=== PATIENT | male | born 1935 | race Hispanic/Latino ===

== ENCOUNTER → 2017-08-27 | Outpatient (CLI) | payer OTHER, MEDICARE ==
[~2017-08-27] MED LIST: AMLODIPINE BESYL5 MG PO; ASPIRIN81 MG PO; BELLADONNA-PH16.2 MG; CLOPIDOGREL75 MG PO; CRESTOR5 MG PO; DIAZEPAM5 MG PO; DOCUSATE SODIU100 MG PO; DOXYCYCLINE HY100 M3; FIBER PO; FISH OIL 1,0001 EAC2 PO; FLOMAX0.4 MG PO; GABAPENTIN300 MG PO; GLIPIZIDE ER2.5 MG; LISINOPRIL10 MG PO; METOPROLOL SUCC25 MG PO; NEXIUM40 MG PO; OXAPROZIN600 MG PO; SERTRALINE HCL50 MG PO
--- NOTE | 2017-08-27 10:50 | Diagnostic Imaging Report ---
History: Frontal headache. Chronic sinusitis Comparison studies: None Technique: Axial images were obtained through the paranasal sinuses. Coronal and sagittal images reconstructed from the axial data. Intravenous contrast: None Findings: Paranasal sinuses: Minimal mucosal thickening at the maxillary sinuses alveolar recesses Clear bilaterally including the ostiomeatal units, frontonasal and sphenoethmoidal recesses. Other: Nasal vestibule and cavity: Patent nasal vestibule. Mildly narrowed nasal cavity Nasal septum: 4 mm right septal deviation at the level of the perpendicular plate of the vomer Agger Nasi: Clear bilaterally. Turbinates: Non-aerated bilaterally. Mucosal thickening at the bilateral turbinates. Bobby cells: None Lamina papyracea: Intact. Cribriform plate: Symmetric, 5 mm below the level of the fovea ethmoidalis. Olfactory recesses: Clear Optic nerves: Not dehiscent [place] cells: None Sphenoid sinuses: Clear. The lateral recesses are aerated. Sphenoid septum: Towards the right. Internal carotid arteries: Do not bulge into the sphenoid sinuses. from the sphenoid sinuses by 1 mm bone septum. Atherosclerotic changes of the carotid siphons Orbits: No abnormalities. Bones: No abnormalities. Temporal bones: No abnormalities. Multiple missing dentition. IMPRESSION: 1. Minimal nonspecific mucosal thickening at the maxillary recesses. No other significant inflammatory changes of the paranasal sinuses. 2. Mild nasal cavity narrowing secondary to mucosal thickening of the turbinates and mild right septal deviation. Signed by: DR Jc Mariano M.D. on 08/27/2017 10:46 AM
== END ==
LOC: CT 08:46
PROVIDERS: ATTEND Internal Medicine Allergy & Immunology
DX: J32.9 Chronic sinusitis, unspecified (principal)
CPT/HCPCS: 70486

== ENCOUNTER → 2017-10-09 | Outpatient (CLI) | payer MEDICARE, OTHER ==
[2017-10-09 10:18] LABS: BASOPHILS % 0.6 % (0.0-1.0); EOSINOPHILS # (AUTO) 0.4 (0.0-0.4); EOSINOPHILS % 5.9 % (0.0-6.0); HEMATOCRIT 40.2 % (38.2-49.6); LYMPHOCYTES # (AUTO) 1.1 (1.0-3.2); LYMPHOCYTES % 15.3 % (18.0-39.1); MEAN CORPUSCULAR HEMOGLOBIN 32.8 pg (28-32); MEAN CORPUSCULAR HGB CONC 34.8 g/dL (31-35); MEAN CORPUSCULAR VOLUME 94.1 fL (81-99); MONOCYTES # (AUTO) 0.8 (0.2-0.8); MONOCYTES % 11.9 % (4.4-11.3); NEUTROPHILS # (AUTO) 4.6 (2.1-6.9); NEUTROPHILS % 65.9 % (38.7-80.0); PLATELET COUNT 195 x10e3/uL (140-360); RED BLOOD COUNT 4.27 x10e6/uL (4.3-5.7); RED CELL DISTRIBUTION WIDTH 13.5 % (11.7-14.4)
[2017-10-09 11:13] LABS: ERYTHROCYTE SEDIMENTATION RATE 9 mm/hr (0-13)
--- NOTE | 2017-10-10 08:26 | Diagnostic Imaging Report ---
EXAMINATION: MRI of the brain without contrast. HISTORY: Left-sided head pain for several months COMPARISON: None. TECHNIQUE: Sagittal T2; axial DWI, T2, FLAIR, T1-IR, T2 gradient echo; coronal FLAIR. IMAGE QUALITY: Adequate. FINDINGS: Parenchyma: 1. Few scattered white matter FLAIR hyperintense foci, most likely age appropriate nonspecific minimal chronic microvascular ischemic changes. 2. No mass, hemorrhage, acute or chronic infarcts. Skull: Unremarkable. Vessels: Expected flow voids present in the major arteries and dural sinuses. Extra-axial spaces: No abnormal signal intensity or mass effect. Brain volume: Within normal limits for age. Ventricles: No hydrocephalus or displacement. Foramen magnum: Unremarkable. Sella: Unremarkable. Paranasal / mastoid sinuses: No significant inflammatory disease. IMPRESSION: Minimal age appropriate white matter chronic microvascular ischemic changes. Otherwise no intracranial abnormalities. Signed by: Dr. Jeane Spears M.D. on 10/10/2017 8:22 AM
== END ==
LOC: MRI 08:44
PROVIDERS: ATTEND Student in an Organized Health Care Education/Training Program
DX: R51 Headache (principal)
CPT/HCPCS: 36415; 70551; 85025; 85651; 86140

== ENCOUNTER → 2018-04-16 | Outpatient (CLI) | payer OTHER, MEDICARE ==
[~2018-04-16] MED LIST changes: +IOPAMIDOL 370 MG/ML 200 ML INFUS..BTL INJ ONE; +SODIUM CHLORIDE 0.9% 50ML 50 ML ONE
[2018-04-16 12:45] LABS: BLOOD UREA NITROGEN 12 mg/dL (7-26); BUN/CREATININE RATIO 13 (6-25); CREATININE, SERUM 0.91 mg/dL (0.72-1.25); EST GLOMERULAR FILTRATION RATE > 60 ML/MIN (60-)
--- NOTE | 2018-04-16 15:07 | Diagnostic Imaging Report ---
EXAMINATION: CT of the abdomen and pelvis with contrast. TECHNIQUE: Spiral CT images of the abdomen and pelvis were performed from the lung bases to the lesser trochanters after the intravenous administration of 100 cc of Isovue 300 and the oral administration of water. Coronal and sagittal reformatted images were obtained. COMPARISON: None. CLINICAL HISTORY:Abdominal pain DISCUSSION: ABDOMEN/PELVIS: LOWER THORAX:Unremarkable. HEPATOBILIARY: No focal hepatic lesions. No intra hepatic biliary ductal dilation. Mild dilation of the common bile duct, which measures 1.0 cm in caliber. No radiopaque intraluminal filling defects.. GALLBLADDER: Cholecystectomy clips. SPLEEN: No splenomegaly. PANCREAS: No focal masses or ductal dilatation. ADRENALS: No adrenal nodules. KIDNEYS/URETERS: No hydronephrosis, stones, or solid mass lesions. Marked cortical scarring in the mid and inferior aspect of the right kidney PELVIC ORGANS/BLADDER: Mild circumferential bladder wall thickening. No focal lesions. Mild prostatic enlargement. PERITONEUM/RETROPERITONEUM: No free air or fluid. LYMPH NODES: No intra-abdominal, retroperitoneal, pelvic or inguinal lymphadenopathy. VESSELS: Atherosclerotic calcification of the abdominal aorta and iliac vessels. GI TRACT: No bowel dilation or evidence of obstruction. Scattered diverticula in the sigmoid colon, without diverticulitis. No pericolonic inflammatory changes. Stomach is unremarkable. BONES AND SOFT TISSUE: No aggressive lytic lesions. No soft tissue abnormalities. IMPRESSION: 1. No acute abdominopelvic abnormalities. 2. Mild dilation of the common bile duct, likely reflecting postcholecystectomy status. 3. Mild circumferential bladder wall thickening, which may reflect bladder outlet obstruction from a mildly enlarged prostate. Correlate for cystitis. Signed by: Dr. Demond Pollock M.D. on 04/16/2018 3:04 PM
== END ==
LOC: CT 11:42
PROVIDERS: ATTEND Family Medicine
DX: R10.9 Unspecified abdominal pain (principal)
CPT/HCPCS: 36415; 74177; 82565; 84520; Q9967

== ENCOUNTER 2018-04-18 12:03 | Emergency (ER) | payer MEDICARE, OTHER ==
[~2018-04-18] VITALS: Ht 170.2 cm; Wt 72.6 kg
[~2018-04-18 12:03] MED LIST changes: -IOPAMIDOL 370 MG/ML 200 ML INFUS..BTL INJ ONE; -SODIUM CHLORIDE 0.9% 50ML 50 ML ONE
[2018-04-18 13:11] LABS: BASOPHILS % 0.4 % (0.0-1.0); EOSINOPHILS # (AUTO) 0.2 (0.0-0.4); EOSINOPHILS % 2.8 % (0.0-6.0); HEMATOCRIT 39.4 % (38.2-49.6); HEMOGLOBIN 13.8 g/dL (14.0-18.0); LYMPHOCYTES # (AUTO) 1.5 (1.0-3.2); LYMPHOCYTES % 19.7 % (18.0-39.1); MEAN CORPUSCULAR HEMOGLOBIN 32.5 pg (28-32); MEAN CORPUSCULAR VOLUME 92.9 fL (81-99); MONOCYTES # (AUTO) 1.1 (0.2-0.8); NEUTROPHILS # (AUTO) 4.7 (2.1-6.9); NEUTROPHILS % 62.8 % (38.7-80.0); PLATELET COUNT 215 x10e3/uL (140-360); RED BLOOD COUNT 4.24 x10e6/uL (4.3-5.7)
[2018-04-18 13:22] LABS: ALANINE AMINOTRANSFERASE 41 IU/L (0-55); ALBUMIN 3.9 g/dL (3.5-5.0); ALBUMIN/GLOBULIN RATIO 1.3 (0.8-2.0); ALKALINE PHOSPHATASE 108 IU/L (40-150); AMYLASE 101 U/L (25-125); ANION GAP 15.1 mmol/L (8-16); BLOOD UREA NITROGEN 19 mg/dL (7-26); BUN/CREATININE RATIO 20 (6-25); CALCIUM 8.8 mg/dL (8.4-10.2); CARBON DIOXIDE 21 mmol/L (22-29); CHLORIDE 97 mmol/L (98-107); CREATINE KINASE 163 IU/L (30-200); CREATININE, SERUM 0.93 mg/dL (0.72-1.25); EST GLOMERULAR FILTRATION RATE > 60 ML/MIN (60-); GLUCOSE 150 mg/dL (74-118); LIPASE 62 U/L (8-78); POTASSIUM 4.1 mmol/L (3.5-5.1); SODIUM 129 mmol/L (136-145)
[2018-04-18] MEDS ORDERED: ONDANSETRON HCL INJ 2 MG/ML VIAL IV STA (14:13)
[2018-04-18] MEDS ORDERED: MORPHINE SULFATE INJ 4 MG/ML INJ IV ONE (14:15)
[2018-04-18 14:43] LABS: BILIRUBIN,URINE NEGATIVE (NEGATIVE); CLARITY,URINE CLEAR (CLEAR); COLOR,URINE YELLOW (YELLOW); KETONES,URINE NEGATIVE (NEGATIVE); LEUKOCYTE ESTERASE ,URINE NEGATIVE (NEGATIVE); NITRITE,URINE NEGATIVE (NEGATIVE); PROTEIN,URINE DIPSTICK NEGATIVE (NEGATIVE); URINE UROBILINOGEN 0.2 mg/dL (0.2 - 1)
[2018-04-18 14:44] LABS: RBC,URINE 0-5 /HPF (0-5); WBC,URINE (MAN) 0-5 /HPF (0-5)
[2018-04-18 14:45] LABS: BACTERIA,URINE RARE /HPF
--- NOTE | 2018-04-18 15:21 | Diagnostic Imaging Report ---
EXAMINATION: CHEST 2 VIEWS INDICATION: \S\epigastric pain \[id number] \S\[id number] COMPARISON: Chest radiograph 05/13/2014 (report only) FINDINGS: PA and lateral views TUBES and LINES: None. LUNGS: Lungs are well inflated. Lungs are clear. There is no evidence of pneumonia or pulmonary edema. PLEURA: No pleural effusion or pneumothorax. Biapical pleural thickening. HEART AND MEDIASTINUM: The cardiomediastinal silhouette is unremarkable. BONES AND SOFT TISSUES: No acute osseous lesion. Soft tissues are unremarkable. UPPER ABDOMEN: No free air under the diaphragm. Right upper quadrant cholecystectomy clips. IMPRESSION: Biapical pleural thickening. Recommend follow-up chest radiograph in 3 months to demonstrate stability. Otherwise, unremarkable chest radiograph. Signed by: Dr. Yadira Clark M.D. on 04/18/2018 3:18 PM
[2018-04-18 18:05] VITALS: BP 121/80
== END 2018-04-18 18:09 | disposition home or self-care (01) ==
LOC: ER 12:03
DX: R10.13 Epigastric pain (principal); I10 Essential (primary) hypertension; E11.9 Type 2 diabetes mellitus without complications; E78.5 Hyperlipidemia, unspecified; K21.9 Gastro-esophageal reflux disease without esophagitis
CPT/HCPCS: 36415; 71046; 80053; 81001; 82150; 82550; 82553; 82948; 83690; 84484; 85025; 93005; 99284; J2270; J2405

== ENCOUNTER → 2018-09-01 | Outpatient (CLI) | payer MEDICARE, OTHER ==
--- NOTE | 2018-09-01 16:01 | Diagnostic Imaging Report ---
Exam: Thoracic spine 2 views History: Back pain Comparison: None. Findings: No fracture or malalignment. Disc spaces preserved. No abnormal soft tissue calcification or soft tissue defect. Impression: No acute osseous abnormality Signed by: Dr. Shan Aguirre M.D. on 09/01/2018 3:57 PM
== END ==
LOC: RAD 14:48
PROVIDERS: ATTEND Family Medicine
DX: M54.6 Pain in thoracic spine (principal)
CPT/HCPCS: 72070

== ENCOUNTER → 2019-01-25 | Outpatient (CLI) | payer MEDICARE, OTHER ==
--- NOTE | 2019-01-25 13:22 | Diagnostic Imaging Report ---
EXAM: Renal Ultrasound INDICATION: Renal sclerosis. COMPARISON: CT abdomen/pelvis 04/16/2018. TECHNIQUE: Transverse and longitudinal images of the kidneys and bladder were obtained. FINDINGS: Right Kidney: Length: Measures 9.6 x 5.3 x 4.8 cm Appearance: Normal echogenicity. Collecting system: No hydronephrosis Stones: None Cyst/Mass: None Left Kidney: Length: Measures 10.4 x 5.4 x 4.1 cm Appearance: Normal echogenicity. Collecting system: No hydronephrosis Stones: None Cyst/Mass: No evidence of solid mass. There is a simple appearing anechoic cyst within the midpole, measuring up to 2.0 cm. Bladder: Unremarkable in appearance. Bilateral ureteral jets are present. IMPRESSION: Simple appearing left midpole renal cyst. Otherwise unremarkable renal ultrasound. Signed by: Dr. Kelsi Bernstein MD on 01/25/2019 1:19 PM
== END ==
LOC: US 11:36
PROVIDERS: ATTEND Urology
DX: N26.9 Renal sclerosis, unspecified (principal)
CPT/HCPCS: 76770

== ENCOUNTER 2019-03-10 08:39 | Observation (INO) | payer MEDICARE ==
[~2019-03-10] VITALS: Ht 167.6 cm; Wt 72.1 kg
--- OUTSIDE RECORDS SUMMARY | 2019-03-10 08:41 | XMS REPORT | Continuity of Care Document ---
Author Author [facility] Organization [employer] Address Unknown Phone Unavailable Care Team Providers Care Teacher Learning Disabled Name Role Phone [employer] Unavailable Unavailable Problems Problem Status Onset Date Classification Date Reported Comments Source CAD, REDUCED EF Active 08/08/2016 [facility] W/ POSS/DX: CAD, REDUCED EF Active 08/08/2016 [facility] Discharge Diagnosis: Acute headache 04/16/2016 04/19/2016 [facility] DIZINESS/ARM PAIN Active 04/16/2016 [facility] CAD, REDUCED EF 40-45% . Active 04/12/2016 [facility] W/ POSS/DX: CAD, REDUCED EF 40-4 Active 04/12/2016 [facility] 719.45 - JOINT PAIN-PELV Active 04/12/2015 [facility] [place] BACK PAIN, LUMBAR Active 11/10/2013 Condition 11/10/2013 [facility] Low back pain8 Active 11/10/2013 Problem 09/05/2016 Data migrated from [employer] on 01/17/15. [facility] OPIJean Paul [place] CORONARY ATHEROSCLEROSIS, VENETIE IRA VESSEL Active 10/22/2013 Condition 11/10/2013 [facility] INGUINAL PAIN, LEFT Active 10/22/2013 Condition 11/10/2013 [facility] BODY MASS INDEX BETWEEN 19-24 ADULT Active 10/22/2013 Condition 11/10/2013 [facility] Coronary atherosclerosis4 Active 10/22/2013 Problem 09/05/2016 Data migrated from [employer] on 01/17/15. [facility] [place] Inguinal pain7 Active 10/22/2013 Problem 09/05/2016 Data migrated from [employer] on 01/17/15. [facility] [place] DIABETES MELLITUS, TYPE II Active Condition 11/10/2013 [facility] HYPERTENSION, BENIGN Active Condition 11/10/2013 [facility] HYPERLIPIDEMIA Active Condition 11/10/2013 [facility] GERD Active Condition 11/10/2013 [facility] BENIGN PROSTATIC HYPERTROPHY, WITH OBSTRUCTION Active Condition 11/10/2013 [facility] ANXIETY Active Condition 11/10/2013 [facility] Anxiety disorder1 Active Problem 09/05/2016 Data migrated from [employer] on 01/17/15. [facility] Coronary artery disease Resolved Problem 09/05/2016 [facility] Benign hypertension2 Active Problem 09/05/2016 Data migrated from [employer] on 01/17/15. [facility] [place] Benign prostatic hypertrophy with outflow obstruction3 Active Problem 09/05/2016 Data migrated from [employer] on 01/17/15. [facility] [place] Diabetes Active Problem 09/05/2016 [facility] Gastroesophageal reflux disease5 Active Problem 09/05/2016 Data migrated from [employer] on 01/17/15. [facility] LAYLA Alonzoadena Hyperlipidemia6 Active Problem 09/05/2016 Data migrated from [employer] on 01/17/15. [facility] OPIJean Paul [place] HTN (Confirmed) Active Problem 09/05/2016 [facility] Type 2 diabetes mellitus9 Active Problem 09/05/2016 Data migrated from [employer] on 01/17/15. [facility] LAYLA Alonzoadena Medications Medication Details Route Status Patient Instructions Ordering Provider Order Date Source metoprolol 25 mg oral tablet, extended release 25 mg=1 tab, PO, Daily, # 30 tab, 0 Refill(s) Active 09/02/2016 [facility] Rosuvastatin calcium 5 MG Oral Tablet [Crestor] 5 mg=1 tab, PO, Bedtime, # 30 tab, 0 Refill(s) Active 09/02/2016 [facility] clopidogrel 75 mg oral tablet 75 mg=1 tab, PO, Daily, # 30 tab, 0 Refill(s) Active 09/02/2016 [facility] GlipiZIDE XL 2.5 mg oral tablet, extended release 2.5 mg=1 tab, PO, Daily, # 30 tab, 0 Refill(s) Active 09/02/2016 [facility] tamsulosin 0.4 mg oral capsule 0.4 mg=1 cap, PO, Daily, # 30 cap, 0 Refill(s) Active 09/02/2016 [facility] amLODIPine 5 mg oral tablet 5 mg=1 tab, PO, Daily, # 90 tab, 0 Refill(s) Active 09/02/2016 [facility] cetirizine 10 mg oral tablet 10 mg=1 tab, PO, Daily, PRN Allergic reaction, # 10 tab, 0 Refill(s) Active 09/02/2016 [facility] lisinopril 40 mg oral tablet 40 mg=1 tab, PO, Daily, # 30 tab, 0 Refill(s) Active 09/02/2016 [facility] Esomeprazole 40 MG Enteric Coated Capsule [Nexium] 40 mg=1 cap, PO, Daily, # 30 cap, 0 Refill(s) Active 09/02/2016 [facility] aspirin 81 mg tablet, enteric coated 81 mg=1 tab, PO, Daily, # 90 tab, 3 Refill(s) Active 09/02/2016 [facility] oxaprozin 600 mg oral tablet 600 mg=1 tab, PO, BID, 0 Refill(s) Inactive 09/02/2016 [facility] sodium chloride 0.9% 1000 ml INJ 1,000 mL 1,000 mL, Rate: 100 ml/hr, Infuse over: 10 hr, Route: IV, Dosing Weight 72.727 kg, Total Volume: 1,000, Start date: 09/02/16 12:29:00 [facility] [employer], Duration: 30 day, Stop date: 10/02/16 12:28:00 [facility] [employer] Inactive 09/02/2016 [facility] Saline Flush 0.9% 10 mL, Route: IVP, Drug Form: INJ, Dosing Weight 72.727, kg, PRN, PRN Line Flush, Start date: 04/16/16 21:11:00 CDT, Duration: 30 day, Stop date: 05/16/16 21:10:00 CDTNotes: Same as: BD Posiflush Sterile Inactive 04/17/2016 [facility] Tylenol 650 mg, Route: PO, Drug form: TAB, ONCE, Dosing Weight 72.727, kg, Priority: STAT, Start date: 04/16/16 21:09:00 CDT, Stop date: 04/16/16 21:09:00 CDT Inactive 04/17/2016 [facility] ASPIRIN EC LO-DOSE 81 MG TBEC take one tablet daily Active 10/22/2013 [facility] CLOPIDOGREL BISULFATE 75 MG TABS 1 tablet daily Active 10/22/2013 [facility] CRESTOR 5 MG TABS 1 tablet daily Active 10/22/2013 [facility] DIAZEPAM 5 MG TABS 1 tablet as needed Active 10/22/2013 [facility] GLIPIZIDE ER 2.5 MG [id number] take one tablet daily as directed Active 10/22/2013 [facility] LISINOPRIL 40 MG TABS 1 tablet daily Active 10/22/2013 [facility] METOPROLOL SUCCINATE ER 25 MG [id number] 1 tablet teice daily Active 10/22/2013 [facility] NEXIUM 40 MG PACK take one capsule daily Active 10/22/2013 [facility] TAMSULOSIN HCL 0.4 MG CAPS Take one capsule by mouth daily Active 10/22/2013 [facility] Allergies, Adverse Reactions, Alerts Substance Category Reaction Severity Reaction type Status Date Reported Comments Source PENICILLIN Drug allergy PENICILLIN [facility] QC NIGHTTIME COUGH Drug allergy QC NIGHTTIME [facility]GH [facility] acetaminophen-diphenhydrAMINE<sup>1</sup> Assertion Drug allergy Active Data migrated from [employer] on 12/15/14. Originally documented as QC NIGHTTIME COUGH. hives [facility] Motrin Assertion Drug allergy Active [facility] penicillins<sup>2</sup> Assertion Drug allergy Active Data migrated from [employer] on 03/16/15. Originally documented as PENICILLIN. [facility] Benadryl Assertion Drug allergy Active [facility] penicillins<sup>1</sup> Assertion Drug allergy Active Data migrated from [employer] on 03/16/15. Originally documented as PENICILLIN. [facility] Immunizations Immunization Date Given Site Status Last Updated Comments Source influenza immunization (Flu Vax) has been administered 05/27/2013 completed [facility] pneumococcal immunization administered 01/30/2005 completed [facility] Results Order Name Results Value Reference Range Date Interpretation Comments Source BLOOD BANK RESULTS ABO/Rh O POS 09/02/2016 [facility] BLOOD BANK RESULTS Antibody Scrn Negative (09/02/16 12:35 PM) 09/02/2016 [facility] CHEM PANEL Magnesium Lvl 1.9 1.8 - 2.4 09/02/2016 [facility] ELECTROLYTES AGAP 12.1 10.0 - 20.0 09/02/2016 [facility] ELECTROLYTES eGFR 73 09/02/2016 Result Comment: The eGFR is calculated using the CKD-EPI formula. In most young, healthy individuals the eGFR will be >90 mL/min/1.73m2. The eGFR declines with age. An eGFR of 60-89 may be normal in some populations, particularly the elderly, for whom the CKD-EPI formula has not been extensively validated. Use of the eGFR is not recommended in the following populations:

Individuals with unstable creatinine concentrations, including patients and those with serious co-morbid conditions.

Patients with extremes in muscle mass or diet.

The data above are obtained from the National Kidney Disease Education Program (NKDEP) which additionally recommends that when the eGFR is used in patients with extremes of body mass index for purposes of drug dosing, the eGFR should be multiplied by the estimated BMI. [facility] ELECTROLYTES Potassium Lvl 4.1 3.5 - 5.1 09/02/2016 [facility] ELECTROLYTES Chloride Lvl 93 95 - 109 09/02/2016 [facility] ELECTROLYTES Sodium Lvl 128 135 - 145 09/02/2016 [facility] ELECTROLYTES CO2 27 24 - 32 09/02/2016 [facility] ELECTROLYTES Calcium Lvl 8.9 8.5 - 10.5 09/02/2016 [facility] ELECTROLYTES Glucose Lvl 112 70 - 99 09/02/2016 [facility] ELECTROLYTES Creatinine Lvl 0.97 0.50 - 1.40 09/02/2016 [facility] ELECTROLYTES BUN 16 7 - 22 09/02/2016 [facility] HEMATOLOGY INR 1.13 0.85 - 1.17 09/02/2016 [facility] HEMATOLOGY PTT 33.7 22.9 - 35.8 09/02/2016 [facility] HEMATOLOGY PT 14.7 12.0 - 14.7 09/02/2016 [facility] HEMATOLOGY RDW 15.1 11.5 - 14.5 09/02/2016 [facility] HEMATOLOGY MPV 7.3 7.4 - 10.4 09/02/2016 [facility] HEMATOLOGY Platelet 169 133 - 450 09/02/2016 [facility] HEMATOLOGY Hgb 14.3 14.0 - 18.0 09/02/2016 [facility] HEMATOLOGY RBC 4.49 4.70 - 6.10 09/02/2016 [facility] HEMATOLOGY WBC 3.5 3.7 - 10.4 09/02/2016 [facility] HEMATOLOGY MCHC 33.9 32.0 - 36.0 09/02/2016 [facility] HEMATOLOGY MCV 94.1 80.0 - 94.0 09/02/2016 [facility] HEMATOLOGY MCH 31.8 27.0 - 31.0 09/02/2016 [facility] HEMATOLOGY Hct 42.2 42.0 - 54.0 09/02/2016 [facility] HEMATOLOGY Basophils 0.9 0.0 - 1.0 09/02/2016 [facility] HEMATOLOGY Eosinophils 0.8 0.0 - 4.0 09/02/2016 [facility] HEMATOLOGY Monocytes 15.0 2.0 - 12.0 09/02/2016 [facility] HEMATOLOGY Lymphocytes 15.3 20.0 - 40.0 09/02/2016 [facility] HEMATOLOGY Segs 68.0 45.0 - 75.0 09/02/2016 [facility] HEMATOLOGY Segs-Bands # 2.3 1.5 - 8.1 09/02/2016 [facility] HEMATOLOGY Lymphocytes # 0.5 1.0 - 5.5 09/02/2016 [facility] HEMATOLOGY Monocytes # 0.5 0.0 - 0.8 09/02/2016 [facility] HEMATOLOGY Sed Rate 9 0 - 15 04/17/2016 [facility] IMMUNOLOGY C-REACTIVE PROTEIN <2.9 (04/16/16 9:57 PM) <=2.9 04/17/2016 [facility] CARDIAC ENZYMES CK MB Index 2.0 0.0 - 2.5 04/17/2016 [facility] CARDIAC ENZYMES Total CK 97 12 - 191 04/17/2016 [facility] CARDIAC ENZYMES Troponin-I <0.02 0.00 - 0.40 04/17/2016 [facility] CARDIAC ENZYMES CK MB 1.9 0.5 - 3.6 04/17/2016 [facility] CHEM PANEL Creatinine Lvl 0.92 0.50 - 1.40 04/17/2016 [facility] CHEM PANEL BUN 18 7 - 22 04/17/2016 [facility] CHEM PANEL Glucose Lvl 135 70 - 99 04/17/2016 [facility] CHEM PANEL Sodium Lvl 131 135 - 145 04/17/2016 [facility] CHEM PANEL eGFR 79 04/17/2016 Result Comment: The eGFR is calculated using the CKD-EPI formula. In most young, healthy individuals the eGFR will be >90 mL/min/1.73m2. The eGFR declines with age. An eGFR of 60-89 may be normal in some populations, particularly the elderly, for whom the CKD-EPI formula has not been extensively validated. Use of the eGFR is not recommended in the following populations:

Individuals with unstable creatinine concentrations, including patients and those with serious co-morbid conditions.

Patients with extremes in muscle mass or diet.

The data above are obtained from the National Kidney Disease Education Program (NKDEP) which additionally recommends that when the eGFR is used in patients with extremes of body mass index for purposes of drug dosing, the eGFR should be multiplied by the estimated BMI. [facility] CHEM PANEL Chloride Lvl 97 95 - 109 04/17/2016 [facility] CHEM PANEL Potassium Lvl 4.5 3.5 - 5.1 04/17/2016 [facility] CHEM PANEL CO2 24 24 - 32 04/17/2016 [facility] CHEM PANEL AGAP 14.5 10.0 - 20.0 04/17/2016 [facility] CHEM PANEL Calcium Lvl 8.6 8.5 - 10.5 04/17/2016 [facility] CHEM PANEL B/C Ratio 20 6 - 25 04/17/2016 [facility] CHEM PANEL AST 30 0 - 37 04/17/2016 [facility] CHEM PANEL Alk Phos 189 39 - 136 04/17/2016 [facility] CHEM PANEL Bili Total 0.3 0.2 - 1.3 04/17/2016 [facility] CHEM PANEL Globulin 3.4 2.7 - 4.2 04/17/2016 [facility] CHEM PANEL A/G Ratio 1.1 0.7 - 1.6 04/17/2016 [facility] CHEM PANEL Total Protein 7.1 6.4 - 8.4 04/17/2016 [facility] CHEM PANEL ALT 43 0 - 65 04/17/2016 [facility] CHEM PANEL Albumin Lvl 3.7 3.5 - 5.0 04/17/2016 [facility] HEMATOLOGY RDW 13.5 11.5 - 14.5 04/17/2016 [facility] HEMATOLOGY Hct 38.7 42.0 - 54.0 04/17/2016 [facility] HEMATOLOGY MCV 95.7 80.0 - 94.0 04/17/2016 [facility] HEMATOLOGY Platelet 212 133 - 450 04/17/2016 [facility] HEMATOLOGY MCH 32.8 27.0 - 31.0 04/17/2016 [facility] HEMATOLOGY MCHC 34.3 32.0 - 36.0 04/17/2016 [facility] HEMATOLOGY MPV 7.3 7.4 - 10.4 04/17/2016 [facility] HEMATOLOGY RBC 4.04 4.70 - 6.10 04/17/2016 [facility] HEMATOLOGY Hgb 13.2 14.0 - 18.0 04/17/2016 [facility] HEMATOLOGY WBC 6.5 3.7 - 10.4 04/17/2016 [facility] HEMATOLOGY Monocytes 14.0 2.0 - 12.0 04/17/2016 [facility] HEMATOLOGY Segs 64.8 45.0 - 75.0 04/17/2016 [facility] HEMATOLOGY Lymphocytes 17.9 20.0 - 40.0 04/17/2016 [facility] HEMATOLOGY Monocytes # 0.9 0.0 - 0.8 04/17/2016 [facility] HEMATOLOGY Eosinophils 2.8 0.0 - 4.0 04/17/2016 [facility] HEMATOLOGY Basophils 0.5 0.0 - 1.0 04/17/2016 [facility] HEMATOLOGY Segs-Bands # 4.2 1.5 - 8.1 04/17/2016 [facility] HEMATOLOGY Lymphocytes # 1.2 1.0 - 5.5 04/17/2016 [facility] HEMATOLOGY Eosinophils # 0.2 0.0 - 0.5 04/17/2016 [facility] Chemistry CHOLESTEROL 141 07/23/2013 [facility] TRIGLYCERIDE 95 07/23/2013 [facility] Chemistry HDL 55 07/23/2013 [facility] Chemistry LDL 67 07/23/2013 [facility] Chemistry HGBA1C 5.2 07/23/2013 [facility] Chemistry PSA 0.4 12/15/2012 [facility] Chemistry TSH 1.21 12/15/2012 [facility] Pathology Reports No Data Provided for This Section Diagnostic Reports Report Value Date Source Brain wo contrast CT CT HEAD WITHOUT CONTRAST DATE: 04/16/2016 at 10:22 PM. COMPARISON: 09/09/2011. HISTORY: Headache with Lack of Coordination. TECHNIQUE: Contiguous axial images of the brain were obtained without intravenous contrast administration. DLP: 1174.33 mGy-cm. FINDINGS: There are no acute hemorrhages or acute infarcts. The adam-white interfaces are well defined. There are no mass lesions or extra-axial collections. There are no acute bony abnormalities. The calvarium is intact. Atherosclerotic calcification is noted within the correa of the left vertebral and bilateral cavernous internal carotid arteries. IMPRESSION: 1. No acute intracranial abnormality. 2. Arterial atherosclerosis. Resident preliminary report by Dr. Alberto Ackerman: No acute intracranial abnormality. 04/16/2016 [facility] Chest 1view DX EXAM: XR CHEST 1 VIEW DATE: 04/16/2016 at 2219 hours INDICATION: Abnormal chest sounds COMPARISON: None available. TECHNIQUE: AP view of the chest FINDINGS: Lungs and pleura: No pulmonary or pleural based abnormality is identified. Heart and mediastinum: The heart size is normal for technique. The mediastinal contours are normal. Bones: No acute bony abnormality is identified. Surgical clips overlie the gallbladder fossa. IMPRESSION: No acute cardiopulmonary abnormality. 04/16/2016 [facility] Spine thoracic 3 views DX EXAM: Three view(s) of the lumbar spine. Three views of the thoracic spine. INDICATION: Pain. COMPARISON: None. FINDINGS: Thoracic spine: Intact alignment. No acute compression fracture or subluxation. No large paravertebral hematoma. Lumbar spine: Intact alignment. No acute compression fracture or subluxation. Mild disc space narrowing at L5-S1. Mild multilevel facet degeneration. IMPRESSION: 1. No acute compression fracture of the thoracic or lumbar spine. 04/12/2015 [facility] [place] Spine lumbar 2 or 3 views DX EXAM: Three view(s) of the lumbar spine. Three views of the thoracic spine. INDICATION: Pain. COMPARISON: None. FINDINGS: Thoracic spine: Intact alignment. No acute compression fracture or subluxation. No large paravertebral hematoma. Lumbar spine: Intact alignment. No acute compression fracture or subluxation. Mild disc space narrowing at L5-S1. Mild multilevel facet degeneration. IMPRESSION: 1. No acute compression fracture of the thoracic or lumbar spine. 04/12/2015 [facility] Hip bilat w pelvis and both lat hips DX EXAM: 4 view(s) of the bilateral hips and pelvis. INDICATION: Pain. COMPARISON: None. FINDINGS: No acute fracture or dislocation. Intact bilateral acetabular joints. IMPRESSION: 1. No acute fracture. 04/12/2015 L[facility] Consultation Notes No Data Provided for This Section Discharge Summaries No Data Provided for This Section History and Physicals No Data Provided for This Section Vital Signs Vital Sign Value Date Comments Source Systolic (mm Hg) 126 09/02/2016 [facility] Diastolic (mm Hg) 64 09/02/2016 [facility] Systolic (mm Hg) 126 09/02/2016 [facility] Diastolic (mm Hg) 64 09/02/2016 [facility] Systolic (mm Hg) 126 09/02/2016 [facility] Diastolic (mm Hg) 72 09/02/2016 [facility] Temperature Oral (F) 99.0 F 09/02/2016 [facility] Height 172.72 cm 09/02/2016 [facility] BMI Calculated 23.62 09/02/2016 [facility] Weight 70.455 09/02/2016 [facility] Systolic (mm Hg) 122 04/17/2016 [facility] Diastolic (mm Hg) 65 04/17/2016 [facility] Respitory Rate 19 04/17/2016 [facility] Systolic (mm Hg) 155 04/17/2016 [facility] Diastolic (mm Hg) 76 04/17/2016 [facility] Respitory Rate 18 04/17/2016 [facility] Heart Rate 62 04/17/2016 [facility] Temperature Oral (F) 98.4 F 04/17/2016 [facility] Weight 72.727 04/17/2016 [facility] BMI Calculated 25.11 04/17/2016 [facility] Respitory Rate 18 04/17/2016 [facility] Temperature Oral (F) 97.9 F 04/17/2016 [facility] Height 170.18 cm 04/17/2016 [facility] Systolic (mm Hg) 148 04/17/2016 [facility] Diastolic (mm Hg) 74 04/17/2016 [facility] Heart Rate 77 04/17/2016 [facility] Weight 153.38 11/10/2013 [facility] Respitory Rate 12 11/10/2013 [facility] Heart Rate 66 11/10/2013 [facility] Systolic (mm Hg) 126 11/10/2013 [facility] Diastolic (mm Hg) 65 11/10/2013 [facility] Weight 142.50 10/22/2013 [facility] Height 66 10/22/2013 [facility] Respitory Rate 12 10/22/2013 [facility] Heart Rate 68 10/22/2013 [facility] Systolic (mm Hg) 135 10/22/2013 [facility] Diastolic (mm Hg) 64 10/22/2013 [facility] Encounters Location Location Details Encounter Type Encounter Number Reason For Visit Attending Provider ADM Date DC Date Status Source [facility] Office Visit [id number] Twan Gonzalez MD 10/22/2013 10/22/2013 [facility] Lab Report [id number] Twan Gonzalez MD 10/25/2013 10/25/2013 Medical [facility] Office Visit [id number] Twan Gonzalez MD 11/10/2013 11/10/2013 [facility] [place] [facility] [id number] Ross Hua 04/12/2015 [facility] [id number] Aliyah Ryunas 04/17/2016 04/17/2016 [facility] [id number] Bill Rowell 09/02/2016 09/02/2016 [facility] Procedures Procedure Code Date Perfomer Comments Source Catheterization of left heart [id number] [facility] Assessment and Plan No Data Provided for This Section Plan of Care No Data Provided for This Section Social History Social History Date Source Social History TypeResponse Smoking Status Never smoker; Concerns about tobacco use in household: No; Exposure to Tobacco Smoke None; Cigarette Smoking Last 365 Days No; Reg Smoking Cessation Counseling No 09/02/2016 [facility] No data available for this section 04/13/2015 L[facility] Rebolled[facility] Family History No Data Provided for This Section Advance Directives No Data Provided for This Section Functional Status No Data Provided for This Section
[2019-03-10] MEDS ORDERED: PANTOPRAZOLE 40 MG 10ML VIAL IV STA (09:01)
[2019-03-10] MEDS ORDERED: ASPIRIN 81 MG CHEW TAB PO ONE (09:15)
[2019-03-10 09:16] LABS: BASOPHILS % 0.7 % (0.0-1.0); EOSINOPHILS # (AUTO) 0.2 (0.0-0.4); EOSINOPHILS % 4.1 % (0.0-6.0); HEMATOCRIT 39.8 % (38.2-49.6); HEMOGLOBIN 13.6 g/dL (14.0-18.0); LYMPHOCYTES # (AUTO) 1.1 (1.0-3.2); LYMPHOCYTES % 18.6 % (18.0-39.1); MEAN CORPUSCULAR HEMOGLOBIN 32.2 pg (28-32); MEAN CORPUSCULAR HGB CONC 34.2 g/dL (31-35); MEAN CORPUSCULAR VOLUME 94.1 fL (81-99); MONOCYTES # (AUTO) 0.7 (0.2-0.8); MONOCYTES % 12.1 % (4.4-11.3); NEUTROPHILS # (AUTO) 3.7 (2.1-6.9); NEUTROPHILS % 64.2 % (38.7-80.0); PLATELET COUNT 212 x10e3/uL (140-360); RED BLOOD COUNT 4.23 x10e6/uL (4.3-5.7); RED CELL DISTRIBUTION WIDTH 12.8 % (11.7-14.4)
[2019-03-10 09:18] LABS: BILIRUBIN,URINE NEGATIVE (NEGATIVE); CLARITY,URINE CLEAR (CLEAR); COLOR,URINE YELLOW (YELLOW); KETONES,URINE NEGATIVE (NEGATIVE); LEUKOCYTE ESTERASE ,URINE NEGATIVE (NEGATIVE); NITRITE,URINE NEGATIVE (NEGATIVE); PROTEIN,URINE DIPSTICK NEGATIVE (NEGATIVE); URINE UROBILINOGEN 0.2 mg/dL (0.2 - 1)
[2019-03-10 09:27] LABS: INR 0.95; PROTHROMBIN TIME 13.2 seconds (11.9-14.5)
[2019-03-10 09:34] LABS: ALANINE AMINOTRANSFERASE 22 IU/L (0-55); ALBUMIN/GLOBULIN RATIO 1.3 (0.8-2.0); ALKALINE PHOSPHATASE 133 IU/L (40-150); BLOOD UREA NITROGEN 12 mg/dL (7-26); BUN/CREATININE RATIO 14 (6-25); CALCIUM 8.8 mg/dL (8.4-10.2); CARBON DIOXIDE 24 mmol/L (22-29); CHLORIDE 97 mmol/L (98-107); CREATINE KINASE 98 IU/L (30-200); CREATININE, SERUM 0.86 mg/dL (0.72-1.25); EST GLOMERULAR FILTRATION RATE > 60 ML/MIN (60-); GLUCOSE 193 mg/dL (74-118); SODIUM 127 mmol/L (136-145)
[2019-03-10 09:36] LABS: BACTERIA,URINE RARE /HPF; EPITHELIAL CELLS,URINE RARE /LPF; RBC,URINE 0-5 /HPF (0-5); WBC,URINE (MAN) 0-5 /HPF (0-5)
--- NOTE | 2019-03-10 09:41 | Diagnostic Imaging Report ---
EXAMINATION: CHEST SINGLE (PORTABLE) INDICATION: Chest pain COMPARISON: Chest radiograph of 04/18/2019 FINDINGS: TUBES and LINES: EKG leads overlie the chest. LUNGS: The lung volumes are normal. No focal consolidation or pulmonary edema. Mild biapical pleural parenchymal thickening/scarring. PLEURA: No pleural effusion or pneumothorax. HEART AND MEDIASTINUM: The cardiomediastinal silhouette is normal in size and contour. BONES AND SOFT TISSUES: No acute fracture or dislocation. UPPER ABDOMEN: No free air under the diaphragm. IMPRESSION: No focal pneumonia or pulmonary edema. Signed by: Eulogio Duarte MD on 03/10/2019 9:37 AM
[2019-03-10] MEDS ORDERED: FAMOTIDINE 20 MG/2 ML VIAL IV SCH (10:15)
[2019-03-10] MEDS ORDERED: NITROGLYCERIN 0.4 MG SUBL SL PRN (10:15)
[2019-03-10] MEDS ORDERED: MORPHINE SULFATE 2 MG/ML SYR 1ML IV PRN (10:15)
[2019-03-10] MEDS ORDERED: ONDANSETRON HCL INJ 2MG/ML 2ML 2 MG/ML VIAL IV PRN (10:15)
[2019-03-10] MEDS ORDERED: DEXTROSE 50% SYRINGE 50 ML IV PRN (10:15)
--- OUTSIDE RECORDS SUMMARY | 2019-03-10 10:28 | XMS REPORT | Continuity of Care Document ---
Author Author [employer] Organization [employer] Address Unknown Phone Unavailable Care Team Providers Care Inspector Publications Name Role Phone [email or web address] Unavailable Unavailable Problems Problem Status Onset Date Classification Date Reported Comments Source CAD, REDUCED EF Active 08/08/2016 [facility] W/ POSS/DX: CAD, REDUCED EF Active 08/08/2016 [facility] Discharge Diagnosis: Acute headache 04/16/2016 04/19/2016 [facility] DIZINESS/ARM PAIN Active 04/16/2016 [facility] CAD, REDUCED EF 40-45% . Active 04/12/2016 [facility] W/ POSS/DX: CAD, REDUCED EF 40-4 Active 04/12/2016 [facility] 719.45 - JOINT PAIN-PELV Active 04/12/2015 [facility] BACK PAIN, LUMBAR Active 11/10/2013 Condition 11/10/2013 [facility] Low back pain8 Active 11/10/2013 Problem 09/05/2016 Data migrated from [employer] on 01/17/15. [facility] OPIJean Paul [facility] CORONARY ATHEROSCLEROSIS, DOUGLAS VESSEL Active 10/22/2013 Condition 11/10/2013 [facility] INGUINAL PAIN, LEFT Active 10/22/2013 Condition 11/10/2013 [facility] BODY MASS INDEX BETWEEN 19-24 ADULT Active 10/22/2013 Condition 11/10/2013 [facility] Coronary atherosclerosis4 Active 10/22/2013 Problem 09/05/2016 Data migrated from [employer] on 01/17/15. [facility] Inguinal pain7 Active 10/22/2013 Problem 09/05/2016 Data migrated from [employer] on 01/17/15. [facility] DIABETES MELLITUS, TYPE II Active Condition 11/10/2013 [facility] HYPERTENSION, BENIGN Active Condition 11/10/2013 [facility] HYPERLIPIDEMIA Active Condition 11/10/2013 [facility] GERD Active Condition 11/10/2013 [facility] BENIGN PROSTATIC HYPERTROPHY, WITH OBSTRUCTION Active Condition 11/10/2013 [facility] ANXIETY Active Condition 11/10/2013 [facility] Anxiety disorder1 Active Problem 09/05/2016 Data migrated from [employer] on 01/17/15. [facility] OPIJean Paul AlonzoWelch Coronary artery disease Resolved Problem 09/05/2016 [facility] Benign hypertension2 Active Problem 09/05/2016 Data migrated from [employer] on 01/17/15. [facility] Benign prostatic hypertrophy with outflow obstruction3 Active Problem 09/05/2016 Data migrated from [employer] on 01/17/15. [facility] Diabetes Active Problem 09/05/2016 [facility] Gastroesophageal reflux disease5 Active Problem 09/05/2016 Data migrated from [employer] on 01/17/15. [facility] LAYLA Alonzoadena Hyperlipidemia6 Active Problem 09/05/2016 Data migrated from [employer] on 01/17/15. [facility] OPI[facility] Paul [facility] HTN (Confirmed) Active Problem 09/05/2016 [facility] Type 2 diabetes mellitus9 Active Problem 09/05/2016 Data migrated from [employer] on 01/17/15. [facility] LAYLA Alonzoadena Medications Medication Details Route Status Patient Instructions Ordering Provider Order Date Source metoprolol 25 mg oral tablet, extended release 25 mg=1 tab, PO, Daily, # 30 tab, 0 Refill(s) Active 09/02/2016 [facility] Rosuvastatin calcium 5 MG Oral Tablet [Crestor] 5 mg=1 tab, PO, Bedtime, # 30 tab, 0 Refill(s) Active 09/02/2016 [facility] clopidogrel 75 mg oral tablet 75 mg=1 tab, PO, Daily, # 30 tab, 0 Refill(s) Active 09/02/2016 [facility] GlipiZIDE XL 2.5 mg oral tablet, extended release 2.5 mg=1 tab, PO, Daily, # 30 tab, 0 Refill(s) Active 09/02/2016 [facility] tamsulosin 0.4 mg oral capsule 0.4 mg=1 cap, PO, Daily, # 30 cap, 0 Refill(s) Active 09/02/2016 [facility] amLODIPine 5 mg oral tablet 5 mg=1 tab, PO, Daily, # 90 tab, 0 Refill(s) Active 09/02/2016 [facility] cetirizine 10 mg oral tablet 10 mg=1 tab, PO, Daily, PRN Allergic reaction, # 10 tab, 0 Refill(s) Active 09/02/2016 [facility] lisinopril 40 mg oral tablet 40 mg=1 tab, PO, Daily, # 30 tab, 0 Refill(s) Active 09/02/2016 [facility] Esomeprazole 40 MG Enteric Coated Capsule [Nexium] 40 mg=1 cap, PO, Daily, # 30 cap, 0 Refill(s) Active 09/02/2016 [facility] aspirin 81 mg tablet, enteric coated 81 mg=1 tab, PO, Daily, # 90 tab, 3 Refill(s) Active 09/02/2016 [facility] oxaprozin 600 mg oral tablet 600 mg=1 tab, PO, BID, 0 Refill(s) Inactive 09/02/2016 [facility] sodium chloride 0.9% 1000 ml INJ 1,000 mL 1,000 mL, Rate: 100 ml/hr, Infuse over: 10 hr, Route: IV, Dosing Weight 72.727 kg, Total Volume: 1,000, Start date: 09/02/16 12:29:00 FILE CLERK DATA ENTRY, Duration: 30 day, Stop date: 10/02/16 12:28:00 FILE CLERK DATA ENTRY Inactive 09/02/2016 [facility] Saline Flush 0.9% 10 mL, Route: IVP, Drug Form: INJ, Dosing Weight 72.727, kg, PRN, PRN Line Flush, Start date: 04/16/16 21:11:00 CDT, Duration: 30 day, Stop date: 05/16/16 21:10:00 CDTNotes: Same as: BD Posiflush Sterile Inactive 04/17/2016 [facility] Tylenol 650 mg, Route: PO, Drug form: TAB, ONCE, Dosing Weight 72.727, kg, Priority: STAT, Start date: 04/16/16 21:09:00 CDT, Stop date: 04/16/16 21:09:00 CDT Inactive 04/17/2016 [facility] ASPIRIN EC LO-DOSE 81 MG TBEC take one tablet daily Active 10/22/2013 [facility] CLOPIDOGREL BISULFATE 75 MG TABS 1 tablet daily Active 10/22/2013 [facility] CRESTOR 5 MG TABS 1 tablet daily Active 10/22/2013 [facility] DIAZEPAM 5 MG TABS 1 tablet as needed Active 10/22/2013 [facility] GLIPIZIDE ER 2.5 MG [id number] take one tablet daily as directed Active 10/22/2013 [facility] LISINOPRIL 40 MG TABS 1 tablet daily Active 10/22/2013 [facility] METOPROLOL SUCCINATE ER 25 MG [id number] 1 tablet teice daily Active 10/22/2013 [facility] NEXIUM 40 MG PACK take one capsule daily Active 10/22/2013 [facility] TAMSULOSIN HCL 0.4 MG CAPS Take one capsule by mouth daily Active 10/22/2013 [facility] Allergies, Adverse Reactions, Alerts Substance Category Reaction Severity Reaction type Status Date Reported Comments Source PENICILLIN Drug allergy PENICILLIN [facility] QC NIGHTTIME COUGH Drug allergy QC NIGHTTIME COUGH [facility] acetaminophen-diphenhydrAMINE<sup>1</sup> Assertion Drug allergy Active Data migrated from [employer] on 12/15/14. Originally documented as QC NIGHTTIME COUGH. hives [facility] Motrin Assertion Drug allergy Active [facility] penicillins<sup>2</sup> Assertion Drug allergy Active Data migrated from [employer] on 03/16/15. Originally documented as PENICILLIN. [facility] Benadryl Assertion Drug allergy Active [facility] penicillins<sup>1</sup> Assertion Drug allergy Active Data migrated from [employer] on 03/16/15. Originally documented as PENICILLIN. [facility] Immunizations Immunization Date Given Site Status Last Updated Comments Source influenza immunization (Flu Vax) has been administered 05/27/2013 completed [facility] pneumococcal immunization administered 01/30/2005 completed [facility] Results Order Name Results Value Reference Range Date Interpretation Comments Source BLOOD BANK RESULTS ABO/Rh O POS 09/02/2016 [facility] BLOOD BANK RESULTS Antibody Scrn Negative (09/02/16 12:35 PM) 09/02/2016 [facility] CHEM PANEL Magnesium Lvl 1.9 1.8 - 2.4 09/02/2016 [facility] ELECTROLYTES AGAP 12.1 10.0 - 20.0 09/02/2016 [facility] ELECTROLYTES eGFR 73 09/02/2016 Result Comment: [...] should be multiplied by the estimated BMI. [facility] ELECTROLYTES Potassium Lvl 4.1 3.5 - 5.1 09/02/2016 [facility] ELECTROLYTES Chloride Lvl 93 95 - 109 09/02/2016 [facility] ELECTROLYTES Sodium Lvl 128 135 - 145 09/02/2016 [facility] ELECTROLYTES CO2 27 24 - 32 09/02/2016 [facility] ELECTROLYTES Calcium Lvl 8.9 8.5 - 10.5 09/02/2016 [facility] ELECTROLYTES Glucose Lvl 112 70 - 99 09/02/2016 [facility] ELECTROLYTES Creatinine Lvl 0.97 0.50 - 1.40 09/02/2016 [facility] ELECTROLYTES BUN 16 7 - 22 09/02/2016 [facility] HEMATOLOGY INR 1.13 0.85 - 1.17 09/02/2016 [facility] HEMATOLOGY PTT 33.7 22.9 - 35.8 09/02/2016 [facility] HEMATOLOGY PT 14.7 12.0 - 14.7 09/02/2016 [facility] HEMATOLOGY RDW 15.1 11.5 - 14.5 09/02/2016 [facility] HEMATOLOGY MPV 7.3 7.4 - 10.4 09/02/2016 [facility] HEMATOLOGY Platelet 169 133 - 450 09/02/2016 [facility] HEMATOLOGY Hgb 14.3 14.0 - 18.0 09/02/2016 [facility] HEMATOLOGY RBC 4.49 4.70 - 6.10 09/02/2016 [facility] HEMATOLOGY WBC 3.5 3.7 - 10.4 09/02/2016 [facility] HEMATOLOGY MCHC 33.9 32.0 - 36.0 09/02/2016 [facility] HEMATOLOGY MCV 94.1 80.0 - 94.0 09/02/2016 [facility] HEMATOLOGY MCH 31.8 27.0 - 31.0 09/02/2016 [facility] HEMATOLOGY Hct 42.2 42.0 - 54.0 09/02/2016 [facility] HEMATOLOGY Basophils 0.9 0.0 - 1.0 09/02/2016 [facility] HEMATOLOGY Eosinophils 0.8 0.0 - 4.0 09/02/2016 [facility] HEMATOLOGY Monocytes 15.0 2.0 - 12.0 09/02/2016 [facility] HEMATOLOGY Lymphocytes 15.3 20.0 - 40.0 09/02/2016 [facility] HEMATOLOGY Segs 68.0 45.0 - 75.0 09/02/2016 [facility] HEMATOLOGY Segs-Bands # 2.3 1.5 - 8.1 09/02/2016 [facility] HEMATOLOGY Lymphocytes # 0.5 1.0 - 5.5 09/02/2016 [facility] HEMATOLOGY Monocytes # 0.5 0.0 - 0.8 09/02/2016 [facility] HEMATOLOGY Sed Rate 9 0 - 15 04/17/2016 [facility] IMMUNOLOGY C-REACTIVE PROTEIN <2.9 (04/16/16 9:57 PM) <=2.9 04/17/2016 [facility] CARDIAC ENZYMES CK MB Index 2.0 0.0 - 2.5 04/17/2016 [facility] CARDIAC ENZYMES Total CK 97 12 - 191 04/17/2016 [facility] CARDIAC ENZYMES Troponin-I <0.02 0.00 - 0.40 04/17/2016 [facility] CARDIAC ENZYMES CK MB 1.9 0.5 - 3.6 04/17/2016 [facility] CHEM PANEL Creatinine Lvl 0.92 0.50 - 1.40 04/17/2016 [facility] CHEM PANEL BUN 18 7 - 22 04/17/2016 [facility] CHEM PANEL Glucose Lvl 135 70 - 99 04/17/2016 [facility] CHEM PANEL Sodium Lvl 131 135 - 145 04/17/2016 [facility] CHEM PANEL eGFR 79 04/17/2016 Result [...] should be multiplied by the estimated BMI. [facility] CHEM PANEL Chloride Lvl 97 95 - 109 04/17/2016 [facility] CHEM PANEL Potassium Lvl 4.5 3.5 - 5.1 04/17/2016 [facility] CHEM PANEL CO2 24 24 - 32 04/17/2016 [facility] CHEM PANEL AGAP 14.5 10.0 - 20.0 04/17/2016 [facility] CHEM PANEL Calcium Lvl 8.6 8.5 - 10.5 04/17/2016 [facility] CHEM PANEL B/C Ratio 20 6 - 25 04/17/2016 [facility] CHEM PANEL AST 30 0 - 37 04/17/2016 [facility] CHEM PANEL Alk Phos 189 39 - 136 04/17/2016 [facility] CHEM PANEL Bili Total 0.3 0.2 - 1.3 04/17/2016 [facility] CHEM PANEL Globulin 3.4 2.7 - 4.2 04/17/2016 [facility] CHEM PANEL A/G Ratio 1.1 0.7 - 1.6 04/17/2016 [facility] CHEM PANEL Total Protein 7.1 6.4 - 8.4 04/17/2016 [facility] CHEM PANEL ALT 43 0 - 65 04/17/2016 [facility] CHEM PANEL Albumin Lvl 3.7 3.5 - 5.0 04/17/2016 [facility] HEMATOLOGY RDW 13.5 11.5 - 14.5 04/17/2016 [facility] HEMATOLOGY Hct 38.7 42.0 - 54.0 04/17/2016 [facility] HEMATOLOGY MCV 95.7 80.0 - 94.0 04/17/2016 [facility] HEMATOLOGY Platelet 212 133 - 450 04/17/2016 [facility] HEMATOLOGY MCH 32.8 27.0 - 31.0 04/17/2016 [facility] HEMATOLOGY MCHC 34.3 32.0 - 36.0 04/17/2016 [facility] HEMATOLOGY MPV 7.3 7.4 - 10.4 04/17/2016 [facility] HEMATOLOGY RBC 4.04 4.70 - 6.10 04/17/2016 [facility] HEMATOLOGY Hgb 13.2 14.0 - 18.0 04/17/2016 [facility] HEMATOLOGY WBC 6.5 3.7 - 10.4 04/17/2016 [facility] HEMATOLOGY Monocytes 14.0 2.0 - 12.0 04/17/2016 [facility] HEMATOLOGY Segs 64.8 45.0 - 75.0 04/17/2016 [facility] HEMATOLOGY Lymphocytes 17.9 20.0 - 40.0 04/17/2016 [facility] HEMATOLOGY Monocytes # 0.9 0.0 - 0.8 04/17/2016 [facility] HEMATOLOGY Eosinophils 2.8 0.0 - 4.0 04/17/2016 [facility] HEMATOLOGY Basophils 0.5 0.0 - 1.0 04/17/2016 [facility] HEMATOLOGY Segs-Bands # 4.2 1.5 - 8.1 04/17/2016 [facility] HEMATOLOGY Lymphocytes # 1.2 1.0 - 5.5 04/17/2016 [facility] HEMATOLOGY Eosinophils # 0.2 0.0 - 0.5 04/17/2016 [facility] Chemistry CHOLESTEROL 141 07/23/2013 [facility] TRIGLYCERIDE 95 07/23/2013 [facility] Chemistry HDL 55 07/23/2013 [facility] LDL 67 07/23/2013 [facility] Chemistry HGBA1C 5.2 07/23/2013 [facility] Chemistry PSA 0.4 12/15/2012 [facility] Chemistry TSH 1.21 12/15/2012 [facility] Pathology [...] Alberto Ackerman: No acute intracranial abnormality. 04/16/2016 [facility] Chest 1view DX EXAM: XR CHEST [...] fossa. IMPRESSION: No acute cardiopulmonary abnormality. 04/16/2016 [facility] Spine thoracic 3 views DX EXAM: [...] the thoracic or lumbar spine. 04/12/2015 [facility] Spine lumbar 2 or 3 views DX [...] Comments Source Systolic (mm Hg) 126 09/02/2016 [facility] Diastolic (mm Hg) 64 09/02/2016 [facility] Systolic (mm Hg) 126 09/02/2016 [facility] Diastolic (mm Hg) 64 09/02/2016 [facility] Systolic (mm Hg) 126 09/02/2016 [facility] Diastolic (mm Hg) 72 09/02/2016 [facility] Temperature Oral (F) 99.0 F 09/02/2016 [facility] Height 172.72 cm 09/02/2016 [facility] BMI Calculated 23.62 09/02/2016 [facility] Weight 70.455 09/02/2016 [facility] Systolic (mm Hg) 122 04/17/2016 [facility] Diastolic (mm Hg) 65 04/17/2016 [facility] Respitory Rate 19 04/17/2016 [facility] Systolic (mm Hg) 155 04/17/2016 [facility] Diastolic (mm Hg) 76 04/17/2016 [facility] Respitory Rate 18 04/17/2016 [facility] Heart Rate 62 04/17/2016 [facility] Temperature Oral (F) 98.4 F 04/17/2016 [facility] Weight 72.727 04/17/2016 [facility] BMI Calculated 25.11 04/17/2016 [facility] Respitory Rate 18 04/17/2016 [facility] Temperature Oral (F) 97.9 F 04/17/2016 [facility] Height 170.18 cm 04/17/2016 [facility] Systolic (mm Hg) 148 04/17/2016 [facility] Diastolic (mm Hg) 74 04/17/2016 [facility] Heart Rate 77 04/17/2016 [facility] Weight 153.38 11/10/2013 [facility] [...] Group Diastolic (mm Hg) 64 10/22/2013 [facility] Encounters Location Location Details Encounter Type Encounter Number Reason For Visit Attending Provider ADM Date DC Date Status Source [facility] Office Visit [id number] Twan Gonzalez MD 10/22/2013 10/22/2013 [facility] Lab Report [id number] Twan Gonzalez MD 10/25/2013 10/25/2013 [facility] Office Visit [id number] Twan Gonzalez MD 11/10/2013 11/10/2013 [facility] [id number] Ross Hua 04/12/2015 [facility]/13/[facility] [address] [facility] Emergency [id number] Aliyah Ryunas 04/17/2016 04/17/2016 [facility] [id number] Bill Rowell 09/02/2016 09/02/2016 [facility] Procedures Procedure Code Date Perfomer Comments Source Catheterization of left heart [id number] [facility] Assessment and Plan No Data Provided for This Section Plan of Care No Data Provided for This Section Social History Social History Date Source Social History TypeResponse Smoking Status Never smoker; Concerns about tobacco use in household: No; Exposure to Tobacco Smoke None; Cigarette Smoking Last 365 Days No; Reg Smoking Cessation Counseling No 09/02/2016 [facility] No data available for this section 04/13/2015 LAY[facility] Rebolledoa Family History No Data Provided for This Section Advance Directives No Data Provided for This Section Functional Status No Data Provided for This Section
[2019-03-10] MEDS ORDERED: INSULIN LISPRO 100 UNIT/1 ML 3ML VIAL SQ SCH (11:30)
[2019-03-10] MEDS: INSULIN LISPRO 100 UNIT/1 ML 3ML VIAL SQ SCH ×3 (12:00→19:39)
[2019-03-10 12:08] VITALS: BP 130/60
[2019-03-10 12:21] VITALS: BP 130/60
[2019-03-10 12:34] VITALS: BP 130/60
[2019-03-10] MEDS ORDERED: CLOPIDOGREL BISULFATE 75 MG TAB PO ONE (12:45)
[2019-03-10] MEDS ORDERED: CLOPIDOGREL BISULFATE 300 MG TAB-DO NOT STOCK PO ONE (13:00)
[2019-03-10 13:13] LABS: CREATINE KINASE 89 IU/L (30-200)
--- NOTE | 2019-03-10 15:38 | Consultation ---
DATE OF CONSULTATION: 03/10/2019 Cardiac Consultation REASON FOR CONSULTATION: Chest pain. HISTORY: An 83-year-old gentleman poorly historian. He started having retrosternal chest pain radiating to his back that alert him. The chest pain when he exercises but also when he moves his torso. The chest pain is progressively worse. It alarmed him. He came to the emergency room. He does have shortness of breath on exertion class 3. He denied having any orthopnea, paroxysmal nocturnal dyspnea. He feels occasional skipping beat. There is no syncope or presyncope. Of note, the patient had a cardiac catheterization two or three years ago and he had been told he is normal. For a fact, he had a cardiac catheterization in 2002, which I did for him, which showed 30% left main ostial LAD and left main. REVIEW OF SYSTEMS: Review of systems was done to all systems, will be summarized for clarity. CARDIAC: As per above. GENERAL: No fever, no chills. PULMONARY: No cough. No hemoptysis. No pleuritic chest pain. No recent travel. GI: No hematemesis. No melena. : No hematuria, no dysuria, occasional dropping of the urine. MUSCULOSKELETAL: Low back pain. NEUROLOGICAL: No headache or seizure activity. HEMATOLOGY: No bruising, no bleeding. PSYCHIATRIC: No depression. No suicidal ideation. ENDOCRINE: Diabetes is very nicely controlled. HOME MEDICATIONS: 1. Flomax 0.4 mg a day. 2. Glipizide 25 mg a day. 3. Colace 100 mg twice a day. 4. Nexium 40 mg a day. 5. Valium 2.5 mg a day. 6. Amlodipine 5 mg a day. 7. Aspirin 81 mg a day. 8. Lisinopril 10 mg a day. 9. Toprol-XL 25 mg a day. 10. Crestor 5 mg a day. BNP is elevated at 586. Cardiac enzyme is normal. EKG showing normal sinus rhythm, nonspecific ST changes. Chest x-ray by report showing no pulmonary edema. No focal pneumonia. The cardiomediastinal silhouette is normal in size and contour. PAST MEDICAL HISTORY: 1. Diabetes mellitus. 2. Hypertension. 3. Hyperlipidemia. 4. Prostate problem. 5. Cholecystectomy. 6. Degenerative joint disease. FAMILY HISTORY: Positive for coronary artery disease but at old age, diabetes mellitus and hypertension. PHYSICAL EXAMINATION: GENERAL: Well-built gentleman, in no acute distress. Poorly historian, anxious. HEENT: Height of 5 feet 7 inches, weight of 160 pounds, blood pressure 130/60, heart rate of 70, respiratory rate of 18, temperature of 96 Fahrenheit. HEENT: Pupils are equal, reactive. NECK: No elevation of jugular venous pulsation. No bruit. CHEST: Clear to auscultation and percussion. HEART: PMI at 5th left intercostal space. Normal first, second heart sounds with soft ejection systolic murmur. ABDOMEN: Soft with good bowel sounds. No organomegaly. No abdominal bruits. EXTREMITIES: No cyanosis, no clubbing, no edema. NEUROLOGIC: Awake, alert, oriented. No motor or sensory deficits. LABORATORY DATA: First set of cardiac enzyme is normal. White blood cell count of 5.8, hemoglobin 13.6, hematocrit 40. Sodium of 127, potassium of 4, BUN 12, creatinine of 0.86. IMPRESSION AND PLAN: 1. Chest pain with typical and atypical characteristics. Good finding is the fact his cardiac cath was normal 3 years ago as per patient and he was taken off Plavix. 2. Hypertension. 3. Diabetes mellitus. 4. Hyperlipidemia. 5. Prostate problem. Cardiac sams, I will do stat cardiac enzyme now. If it is normal, then we will schedule patient for nuclear stress test. We will do an echocardiogram mainly in view of elevation of 586 and shortness of breath on exertion. We will load the patient with 300 mg of Plavix. Lab to be repeated including lipid profile and the rest of his lab. Care discussed and explained. Time of care of almost 60 minutes. MD LUCY Agarwal/[facility] /[id number]
--- NOTE | 2019-03-10 17:40 | NUR ---
Received pt at this time from [facility]. Pt is AXO4 and able to verbalize needs. Pt is ambulatory. Pt is to have stress test in the morning.
[2019-03-10 17:49] LABS: CREATINE KINASE MB 2.2 ng/mL (0-5.0)
--- NOTE | 2019-03-10 19:04 | NUR ---
RECEIVED REPORT FROM PREVIOUS NURSE. CALL LIGHT WITHIN REACH. PATIENT IS IN BED. PATIENT IN NO PAIN OR DISTRESS. PATIENT IS A&OX3
[2019-03-10 20:00] VITALS: BP 129/60
[2019-03-10] MEDS ORDERED: CRESTOR 10MG PO SCH (21:00)
[2019-03-11] VITALS: BP 112/56
[2019-03-11 04:00] VITALS: BP 128/65
[2019-03-11 05:59] LABS: BASOPHILS % 0.3 % (0.0-1.0); EOSINOPHILS # (AUTO) 0.4 (0.0-0.4); EOSINOPHILS % 5.9 % (0.0-6.0); HEMATOCRIT 36.7 % (38.2-49.6); HEMOGLOBIN 12.9 g/dL (14.0-18.0); LYMPHOCYTES # (AUTO) 1.3 (1.0-3.2); LYMPHOCYTES % 21.1 % (18.0-39.1); MEAN CORPUSCULAR HEMOGLOBIN 32.8 pg (28-32); MEAN CORPUSCULAR HGB CONC 35.1 g/dL (31-35); MEAN CORPUSCULAR VOLUME 93.4 fL (81-99); MONOCYTES # (AUTO) 0.8 (0.2-0.8); MONOCYTES % 12.9 % (4.4-11.3); NEUTROPHILS # (AUTO) 3.6 (2.1-6.9); NEUTROPHILS % 59.5 % (38.7-80.0); PLATELET COUNT 194 x10e3/uL (140-360); RED BLOOD COUNT 3.93 x10e6/uL (4.3-5.7); RED CELL DISTRIBUTION WIDTH 12.9 % (11.7-14.4)
[2019-03-11 06:25] LABS: ALANINE AMINOTRANSFERASE 21 IU/L (0-55); ALBUMIN 3.3 g/dL (3.5-5.0); ALBUMIN/GLOBULIN RATIO 1.2 (0.8-2.0); ALKALINE PHOSPHATASE 109 IU/L (40-150); BLOOD UREA NITROGEN 12 mg/dL (7-26); BUN/CREATININE RATIO 14 (6-25); CALCIUM 8.6 mg/dL (8.4-10.2); CARBON DIOXIDE 27 mmol/L (22-29); CHLORIDE 98 mmol/L (98-107); CHOL/HDL RATIO 2.8 (3.9-4.7); CHOLESTEROL 132 MD/DL (0-199); CREATININE, SERUM 0.87 mg/dL (0.72-1.25); EST GLOMERULAR FILTRATION RATE > 60 ML/MIN (60-); GLUCOSE 107 mg/dL (74-118); HDL CHOLESTEROL 47 MG/DL (40-60); LDL CHOLESTEROL 59 MG/DL (60-130); SODIUM 130 mmol/L (136-145); TRIGLYCERIDES 130 MG/DL (0-149)
[2019-03-11 06:48] LABS: CREATINE KINASE MB 2.2 ng/mL (0-5.0)
--- NOTE | 2019-03-11 07:00 | NUR ---
bedside rounds complete, no distress noted, updated on poc vocied understanding, denies pain at this time, call light in reach will continue to monitor
--- NOTE | 2019-03-11 07:16 | NUR ---
Gave report to oncoming nurse. call light within reach.
[2019-03-11] MEDS: INSULIN LISPRO 100 UNIT/1 ML 3ML VIAL SQ SCH ×2 (07:30→11:30)
[2019-03-11 07:56] VITALS: BP 133/85
[2019-03-11] MEDS ORDERED: METOPROLOL SUCCINATE 25 MG TAB XL PO SCH (09:00)
[2019-03-11] MEDS ORDERED: ASPIRIN 81 MG ENTERIC COATED PO SCH (09:00)
[2019-03-11 09:15] VITALS: BP 133/85
[2019-03-11] MEDS ORDERED: REGADENOSON 0.4 MG/5 ML SYR IV ONE (09:23)
--- NOTE | 2019-03-11 09:30 | NUR ---
down to nuclear med for stress test
--- NOTE | 2019-03-11 10:45 | NUR ---
back to rm vs stable, denies pain at this time, call light in reach will continue to monitor
[2019-03-11] MEDS ORDERED: LOSARTAN POTAS100 MG PO (11:34)
[2019-03-11] MEDS ORDERED: GABAPENTIN100 MG PO (11:34)
[2019-03-11] MEDS ORDERED: RANITIDINE HCL300 M1 PO (11:34)
[2019-03-11 11:47] VITALS: BP 148/67
--- NOTE | 2019-03-11 14:48 | Myoview Stress Test ---
DATE OF STUDY: 03/10/2019 12:32:00 Stress Test - Treadmill ONLY INDICATION FOR STUDY: Chest pain. TECHNICAL DETAIL: After risks, benefits, pros and cons of Lexiscan nuclear stress test explained to the patient, the patient agreed to proceed. The patient was brought down to the nuclear lab, where he received an 11 millicurie dose of technetium-99m tetrofosmin intravenously. After 40 minutes, resting myocardial perfusion imaging was performed on the [employer] SPECT camera. Afterwards, he was brought to the stress lab, where 12-lead EKG monitoring and blood pressure monitoring were obtained. He received a dose of Lexiscan 0.4 mg intravenously, followed by 30.0 millicurie dose of technetium-99m tetrofosmin intravenously. Resting heart rate went from a baseline of 98 beats per minute to a maximum of 113 beats per minute, blood pressure went from a baseline of 161/63 down to 145/64, which is an appropriate hemodynamic response. Underlying EKG reveals normal sinus rhythm with nonspecific ST-T wave changes and intermittent PVCs and with Lexiscan infusion, there were no ischemic EKG changes or symptoms. After 25 minutes, the patient was then taken to the SPECT camera for stress myocardial perfusion imaging. FINDINGS: 1. Both resting and stress myocardial perfusion imaging reveals very hard adjacent GI artifact interfering with the quality of our pictures. 2. Resting myocardial perfusion imaging reveals a moderate area of decreased uptake in the inferior wall. 3. Stress myocardial perfusion imaging reveals a moderate area of decreased uptake in the inferior wall. On stress imaging, there appears to be a shift with a reversal of septal to lateral wall brightness, which could be construed as a lateral wall ischemia, which is moderate in intensity. 4. The following gated measurements were obtained. End-diastolic volume 135 mL, end-systolic volume 106 mL, calculated left ventricular ejection fraction is 21% with global hypokinesis. CONCLUSIONS: 1. Abnormal myocardial perfusion imaging study revealing the presence of a moderate-sized fixed inferior wall defect and a moderate-sized reversible lateral wall defect. 2. Notable GI hard artifact on both resting and stress myocardial perfusion imaging. 3. Abnormal left ventricular function with calculated ejection fraction of 21% with global hypokinesis. 4. Overall findings of the stress test compatible with intermediate to high-risk nuclear stress test. Ahramonad MD GLORIA Catherine/MABEL /[id number]
--- NOTE | 2019-03-12 02:25 | Discharge Summary ---
PRIMARY CARE DOCTOR: Dr. Sanjeev Kwok. FINAL DIAGNOSES: Chest pain, back pain, unclear etiology. SECONDARY DIAGNOSES: 1. Hyponatremia, resolving. 2. Diabetes. CONSULTANTS: Dr. Conway, Cardiology. PROCEDURES/STUDIES PERFORMED: Echocardiogram. HISTORY: Per H and P. HOSPITAL COURSE: The patient's troponins were negative, therefore no myocardial infarction. Echocardiogram was done, EF is slightly depressed at about 40%. Stress test was done which shows possible reversible ischemia. Long conversation was done between myself, the gill box tender, the patient and his son-in-law over the phone. The patient decided to follow up with his gill box tender instead of doing a heart catheterization right now. The patient also has some hyponatremia, asymptomatic, likely due to his pain and this is getting better. His TSH is normal. The patient's history for chest pain and back pain was atypical, possibly this could be musculoskeletal. The patient was instructed to follow up with his gill box tender as soon as possible. The patient was seen and examined today. CONDITION ON DISCHARGE: Improved. DISCHARGE MEDICATIONS: Please see medication reconciliation form. Yiching MD CHERRIE Ontiveros/MABEL /[id number] cc: Sanjeev Kwok
== END 2019-03-11 14:44 | disposition home or self-care (01) ==
LOC: ER 08:39 → ERHOLD 10:10 → IMCU 11:29 → MED/SURG 17:15
PROVIDERS: ADMIT Internal Medicine; ATTEND Internal Medicine
DX: R07.2 Precordial pain (principal); E87.1 Hypo-osmolality and hyponatremia; I10 Essential (primary) hypertension; E11.9 Type 2 diabetes mellitus without complications; E78.5 Hyperlipidemia, unspecified; Z82.49 Family history of ischemic heart disease and other diseases of the circulatory system; N40.0 Benign prostatic hyperplasia without lower urinary tract symptoms; M54.9 Dorsalgia, unspecified; Z88.0 Allergy status to penicillin; Z88.8 Allergy status to other drugs, medicaments and biological substances; Z79.82 Long term (current) use of aspirin
CPT/HCPCS: 36415 ×2; 71045; 78452; 80053 ×2; 80061; 81001; 82550 ×2; 82553 ×2; 82948 ×2; 83880; 84443 ×2; 84484 ×2; 85025 ×2; 85610; 85730; 87086; 93005; 93017; 93306; 99284; A9502; C9113; G0378 ×2; J2785

== ENCOUNTER → 2020-04-26 | Outpatient (CLI) | payer MEDICARE, OTHER ==
[~2020-04-26] MED LIST changes: +AMIODARONE HCL200 MG PO; +GABAPENTIN100 MG PO; -GLIPIZIDE ER2.5 MG; +GLIPIZIDE ER2.5 MG PO; +LASIX40 MG PO; +LOSARTAN POTAS100 MG PO; +MINOCYCLINE HCL50 MG PO; +RANITIDINE HCL300 M1 PO
--- NOTE | 2020-04-26 11:25 | Diagnostic Imaging Report ---
EXAM: CHEST 2 VIEWS DATE: 04/26/2020 10:55 AM INDICATION: Chest pain COMPARISON: 03/07/2020 FINDINGS: There has been interval placement of a left-sided ACD with 2 subclavian coursing transvenous leads with the tips terminating over the right atrium and ventricle. The trachea is midline. The lungs are symmetrically expanded without evidence for focal consolidation, pneumothorax, or significant volume pleural effusion. The cardiomediastinal silhouette is stable in appearance. No acute osseous abnormality is identified. IMPRESSION: No acute cardiopulmonary process identified. Signed by: Dr. Monty Whiteside MD on 04/26/2020 11:22 AM
== END ==
LOC: RAD 10:34
PROVIDERS: ATTEND Family Medicine
DX: R07.81 Pleurodynia (principal)
CPT/HCPCS: 71046

== ENCOUNTER → 2022-04-18 | Outpatient (CLI) | payer MEDICARE | LOC: US 09:03 | PROVIDERS: ATTEND Urology | DX: N26.9 Renal sclerosis, unspecified (principal); N32.3 Diverticulum of bladder; N32.0 Bladder-neck obstruction | CPT/HCPCS: 74018; 76770; 76857 ==